=== PATIENT | male | born 1970 | race Caucasian/White ===

== ENCOUNTER 2021-10-11 05:27 | Day surgery (SDC) | payer OTHER ==
[~2021-10-11] VITALS: Ht 177.8 cm; Wt 93.1 kg
[2021-10-11] MEDS ORDERED: LIDOCAINE 4% 50 ML SOLUTION TP ONE (05:28)
[2021-10-11] MEDS ORDERED: BENZOCAINE 20% 50 MCG/SPRAY 57 GM TP ONE (05:28)
[2021-10-11] MEDS ORDERED: ALBUTEROL SULFATE 2.5 MG/0.5 ML NEB SOLUTION NEB ONE (05:28)
[2021-10-11] MEDS ORDERED: LIDOCAINE 2% 30 ML JELLY TP ONE (05:28)
[2021-10-11] MEDS ORDERED: SODIUM CHLORIDE 0.9% 1,000 ML ONE (05:36)
[2021-10-11 06:29] LABS: COVID AG,FIA SOURCE NASOPHARYNGEAL
[2021-10-11] MEDS ORDERED: SODIUM CHLORIDE 0.9% 1,000 ML IV ONE (06:30)
[2021-10-11] MEDS ORDERED: MIDAZOLAM HCL 5 MG/ML VIAL ONE (08:00)
[2021-10-11] MEDS ORDERED: FentaNYL CITRATE PF 100 MCG/2 ML VIAL ONE (08:00)
[2021-10-11] MEDS ORDERED: MethylPREDNISolone SOD SUCC 125 MG/2 ML VIAL ONE (08:30)
[2021-10-11] MEDS ORDERED: SUCR1TAB28 PO (08:32)
[2021-10-11] MEDS ORDERED: TAMS-13 PO (08:34)
[2021-10-11] MEDS ORDERED: MethylPREDNISolone SOD SUCC 125 MG/2 ML VIAL IVP ONE (09:00)
[2021-10-11] MEDS ORDERED: OXYGEN THERAPY IH SCH (20:00)
== END 2021-10-11 11:35 | disposition home or self-care (01) ==
LOC: SURGERY 05:27
PROVIDERS: ATTEND Internal Medicine Critical Care Medicine
DX: J38.4 Edema of larynx (principal); I10 Essential (primary) hypertension; B37.0 Candidal stomatitis; Z79.899 Other long term (current) drug therapy; Z98.890 Other specified postprocedural states
CPT/HCPCS: 31623; 31624; 71045; 87015; 87070; 87077; 87101; 87186; 87205; 87206; 87220; 87426; 88108; 88184; 88185; 88312; C9803; J2250; J2930; J3010; J7030; J7613; Z7610

== ENCOUNTER 2021-12-13 07:07 | Day surgery (SDC) | payer OTHER ==
[~2021-12-13] VITALS: Ht 177.8 cm; Wt 97.7 kg
[~2021-12-13 07:07] MED LIST: SUCR1TAB28 PO; TAMS-13 PO
[2021-12-13] MEDS ORDERED: ALBUTEROL SULFATE 2.5 MG/0.5 ML NEB SOLUTION NEB ONE (07:08)
[2021-12-13] MEDS ORDERED: LIDOCAINE 2% 30 ML JELLY TP ONE (07:08)
[2021-12-13] MEDS ORDERED: BENZOCAINE 20% 50 MCG/SPRAY 57 GM TP ONE (07:08)
[2021-12-13 07:32] LABS: COVID AG,FIA SOURCE NASAL SWAB
[2021-12-13] MEDS ORDERED: SODIUM CHLORIDE 0.9% 1,000 ML ONE (07:39)
[2021-12-13] MEDS ORDERED: MIDAZOLAM HCL 5 MG/ML VIAL ONE (08:12)
[2021-12-13] MEDS ORDERED: FentaNYL CITRATE PF 100 MCG/2 ML VIAL ONE (08:12)
[2021-12-13] MEDS ORDERED: MethylPREDNISolone SOD SUCC 125 MG/2 ML VIAL IVP ONE (09:15)
[2021-12-13] MEDS ORDERED: MethylPREDNISolone SOD SUCC 125 MG/2 ML VIAL ONE (09:39)
[2021-12-13] MEDS ORDERED: OXYGEN THERAPY IH SCH (20:00)
== END 2021-12-13 12:53 | disposition home or self-care (01) ==
LOC: SURGERY 07:07
PROVIDERS: ATTEND Internal Medicine Critical Care Medicine
DX: R05.3 Chronic cough (principal); R06.2 Wheezing; R04.2 Hemoptysis; J34.89 Other specified disorders of nose and nasal sinuses; J38.4 Edema of larynx; B37.0 Candidal stomatitis; I10 Essential (primary) hypertension; Z20.822 Contact with and (suspected) exposure to COVID-19; Z79.899 Other long term (current) drug therapy
CPT/HCPCS: 31623; 31624; 71045; 87015; 87070; 87101; 87206; 87220; 87426; 88184; 88185; C9803; J2250; J2930; J3010; J7030; 88112; 88312; J7613